=== PATIENT | male | born 1965 | race Caucasian/White ===

== ENCOUNTER 2017-04-06 15:46 | Emergency (ER) | payer OTHER ==
[~2017-04-06] VITALS: Ht 175.3 cm; Wt 80.0 kg
[2017-04-06 15:56] VITALS: BP 133/85; PULSE 80; RESP 15; TEMP 98.3; O2SAT 97
[2017-04-06] MEDS ORDERED: AMBI5TAB PO (16:09)
[2017-04-06] MEDS ORDERED: PRIL20TA2 PO (16:09)
--- NOTE | 2017-04-06 16:13 | PD ---
HPI Chief Complaint: Lump, Cyst, Hernia Time Seen by Provider: 16:00 Travel History International Travel<30 days: No Contact w/Intl Traveler<30days: No Traveled to known affect area: No History of Present Illness HPI 52-year-old male complains of a lump in the left groin. Patient states that he noticed it today at work. 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 Patient denies any pain to the area. Patient denies any fever chills. Patient denies any nausea vomiting. PFSH Social History Tobacco Use: No Allergies-Medications (Allergen,Severity, Reaction): Coded Allergies: No Known Allergies (Unverified , 04/06/17) Reported Meds & Prescriptions Reported Meds & Active Scripts Active Reported Prilosec (Omeprazole Magnesium) 20 Mg Tab 20 Mg PO DAILY Ambien (Zolpidem Tartrate) 5 Mg Tab 5 Mg PO HS PRN Review of Systems General / Constitutional: No: Fever Eyes: No: Visual changes HENT: No: Headaches Cardiovascular: No: Chest Pain or Discomfort Respiratory: No: Shortness of Breath Gastrointestinal: No: Abdominal Pain Genitourinary: No: Dysuria Musculoskeletal: No: Pain Skin: No Rash Neurologic: No: Weakness Psychiatric: No: Depression Endocrine: No: Polydipsia Hematologic/Lymphatic: No: Easy Bruising Physical Exam Narrative GENERAL: Well-nourished, well-developed patient. SKIN: Focused skin assessment warm/dry. HEAD: Normocephalic. EYES: No scleral icterus. No injection or drainage. NECK: Supple, trachea midline. No JVD or lymphadenopathy. CARDIOVASCULAR: Regular rate and rhythm without murmurs, gallops, or rubs. RESPIRATORY: Breath sounds equal bilaterally. No accessory muscle use. GASTROINTESTINAL: Abdomen soft, non-tender, nondistended. Patient has soft tissue mass typical of inguinal hernia left groin. It is reducible. No tenderness on palpation of the left groin. MUSCULOSKELETAL: No cyanosis, or edema. BACK: Nontender without obvious deformity. No CVA tenderness. Neurologic exam normal. Data Data Last Documented VS Vital Signs Date Time Temp Pulse Resp B/P (MAP) Pulse Ox O2 Delivery O2 Flow Rate FiO2 04/06/17 15:56 98.3 80 15 133/85 (101) 97 Orders Orders Ed Discharge Order (04/06/17 16:17) MDM Medical Decision Making Medical Screen Exam Complete: Yes Emergency Medical Condition: Yes Differential Diagnosis Differential diagnosis including reducible left inguinal hernia Narrative Course 52-year-old male with reducible left inguinal hernia. Diagnosis Primary Impression: Reducible left inguinal hernia Patient Instructions: General Instructions Additional Instructions: Patient has appointment with general surgeon tomorrow. Advised patient to keep the appointment. No heavy lifting until cleared by surgeon. Return immediately if unable to reduce the hernia, severe pain, fever, vomiting. Disposition: 01 DISCHARGE HOME Condition: Stable Parker Grewal MD Apr 06, 2017 16:13
== END 2017-04-06 16:35 | disposition home or self-care (01) ==
LOC: PHED 15:46
DX: K40.90 Unilateral inguinal hernia, without obstruction or gangrene, not specified as recurrent (principal)
CPT/HCPCS: 99283